=== PATIENT | male | born 1985 | race Caucasian/White ===

== ENCOUNTER 2017-06-27 16:17 | Emergency (ER) | payer OTHER ==
[~2017-06-27] VITALS: Ht 175.2 cm; Wt 81.6 kg
[~2017-06-27 16:17] MED LIST: AUGMENTIN 875 M1 TAB PO; CORTISPORIN SUS10 ML OT; ROBITUSSIN AC 110 ML PO; VICODIN ES 7501 TAB PO
[2017-06-27] MEDS ORDERED: CEPHALEXIN500 M1 PO ×2 (17:08→17:13)
[2017-06-27] MEDS ORDERED: NORCO 5-325 TA1 EACH PO (17:08)
[2017-06-27] MEDS ORDERED: TYLENOL W/CODEI1 TA4 PO (17:41)
== END 2017-06-27 17:27 | disposition home or self-care (01) ==
LOC: ED 16:17
DX: S62.635A Displaced fracture of distal phalanx of left ring finger, initial encounter for closed fracture (principal); S62.633A Displaced fracture of distal phalanx of left middle finger, initial encounter for closed fracture; S61.215A Laceration without foreign body of left ring finger without damage to nail, initial encounter; Z23 Encounter for immunization; W23.0XXA Caught, crushed, jammed, or pinched between moving objects, initial encounter; Y93.89 Activity, other specified; Y92.89 Other specified places as the place of occurrence of the external cause; Y99.9 Unspecified external cause status

== ENCOUNTER → 2020-03-22 | Outpatient (CLI) | payer BC ==
[~2020-03-22] MED LIST changes: +CEPHALEXIN500 M1 PO; +NORCO 5-325 TA1 EACH PO; +TYLENOL W/CODEI1 TA4 PO
== END | disposition home or self-care (01) ==
LOC: COVID19 16:20
PROVIDERS: ATTEND Nurse Practitioner
DX: U07.1 COVID-19 (principal)